=== PATIENT | female | born 1950 | race Caucasian/White ===

== ENCOUNTER → 2018-07-16 | Outpatient (CLI) | payer MEDICARE ==
[~2018-07-16] MED LIST: ASPI-496 PO; BOSW1POW PO; CALC-570 PO; CETI10TA24 PO; CHOL100011 PO; CINN1POW PO; FLUT12AE INH; GUAI-106 PO; IPRA3AMP30 NEB; LACT1CAP35 PO; LEVA15HF4 INH; LISI-170 PO; LORA0.5T PO; MULT-658 PO; RABE20TA26 PO; RALO60TA12 PO; UBID100C24 PO
== END | disposition home or self-care (01) ==
LOC: CFH 09:11
PROVIDERS: ATTEND Family Medicine
DX: M13.842 Other specified arthritis, left hand (principal)